=== PATIENT | female | born 1965 | race American Indian/Alaskan Native ===

== ENCOUNTER 2018-01-04 12:28 | Emergency (ER) | payer OTHER, BC ==
[2018-01-04 13:11] VITALS: TEMP 98.3
[2018-01-04] MEDS ORDERED: TDAP Vaccine 0.5 mL Syr IM ONE (13:22)
--- NOTE | 2018-01-04 13:27 | ED PDOC ---
Arrival/HPI - General Chief Complaint: Abnormal Skin Integrity Time Seen by Provider: 01/04/18 13:22 Historian: Patient - History of Present Illness Narrative History of Present Illness (Text): 01/04/18 13:24 A 52 year old female presents to the emergency room for foreign body removal. Patient reports that 1 week ago she dropped a glass on her kitchen floor. She reports that she thought she had swept it all up but stepped on a piece of glass with her bare L foot shortly after. The patient states that she went to her PMD's office today, but they could not remove it so she was advised to come to the emergency room for the removal. Patient notes that her tetanus shot is not up to date. The patient denies fevers, chills, headache, dizziness, sore throat, cough, chest pain, shortness of breath, dyspnea on exertion, abdominal pain, nausea, vomiting, diarrhea, neck/back pain, urinary/bowel changes or any other complaint. PMD: Dr. Fu 01/04/18 15:26 Time/Duration: Prior to Arrival Symptom Onset: Sudden Symptom Course: Unchanged Activities at Onset: Rest, Light Context: Home Past Medical History - Provider Review Nursing Documentation Reviewed: Yes - Pulmonary Hx Asthma: Yes Hx Bronchitis: Yes - Endocrine/Metabolic Hx Endocrine Disorders: Yes (pre-diabetes) - Genitourinary/Gynecological Hx Genitourinary Disorders: Yes (Fibroids) - Psychiatric Hx Substance Use: No - Anesthesia Hx Anesthesia: No Hx Anesthesia Reactions: No - Suicidal Assessment Feels Threatened In Home Enviroment: No Family/Social History - Physician Review Nursing Documentation Reviewed: Yes Family/Social History: No Known Family HX Smoking Status: Never Smoked Hx Alcohol Use: No Hx Substance Use: No Allergies/Home Meds Allergies/Adverse Reactions: Allergies Penicillins Allergy (Verified 01/04/18 13:05) RASH Home Medications: Home Meds Medication Instructions Recorded Confirmed Albuterol 0.083% [Albuterol 3 ml IH QID 06/28/15 07/06/15 Sulfate 3 Ml] Albuterol Sulfate [Proair Hfa] 0.09 mg IH QID 06/28/15 07/06/15 Azithromycin [Zithromax] 250 mg PO DAILY 06/28/15 07/06/15 Brompheniramine Mal/Dm [place] 118 ml PO QID 06/28/15 07/06/15 [Brom/Pseud/Dm 118 ml] Diclofenac Sodium 75 mg PO BID 06/28/15 07/06/15 Pantoprazole Sodium [Protonix] 40 mg PO DAILY 06/28/15 07/06/15 Phenylephrine/Dm/Acetaminop/GG 10 ml PO QID PRN 06/28/15 07/06/15 [Mucinex Fast-Max Cold, Flu & Sore Throat 177 ] Review of Systems - Physician Review All systems were reviewed & negative as marked: Yes - Review of Systems Constitutional: absent: Fevers, Night Sweats Respiratory: absent: SOB, Cough Cardiovascular: absent: Chest Pain, [place] Gastrointestinal: absent: Abdominal Pain, Stool Changes, Diarrhea, Nausea, Vomiting Genitourinary Female: absent: Urine Output Changes Musculoskeletal: Other (Foreign body in left foot.). absent: Back Pain, Neck Pain Skin: Other (pinpoint laceration to L foot) Neurological: absent: Headache, Dizziness Physical Exam Vital Signs Reviewed: Yes Vital Signs Temp Pulse Resp BP Pulse Ox 01/04/18 14:40 60 18 128/78 101 H 01/04/18 13:05 98.3 F 56 L 17 130/82 99 Temperature: Afebrile Blood Pressure: Normal Pulse: Bradycardic Respiratory Rate: Normal Appearance: Positive for: Well-Appearing, Non-Toxic, Comfortable Pain Distress: None Mental Status: Positive for: Alert and Oriented X 3 - Systems Exam Head: Present: Atraumatic, Normocephalic Pupils: Present: PERRL Extroacular Muscles: Present: EOMI Conjunctiva: Present: Normal Mouth: Present: Moist Mucous Membranes Neck: Present: Normal Range of Motion Back: Present: Normal Inspection Upper Extremity: Present: Normal Inspection. No: Cyanosis, Edema Lower Extremity: Present: Other (Glass in the sole of the medial side of the left foot. Pinpoint area of laceration. ) Neurological: Present: GCS=15, CN II-XII Intact, Speech Normal Skin: Present: Warm, Dry, Normal Color. No: Rashes Psychiatric: Present: Alert, Oriented x 3, Normal Insight, Normal Concentration Medical Decision Making ED Course and Treatment: 01/04/18 13:30 Impression: A 52 year old female presents to the emergency room for foreign body removal from left foot. Plan: -- Left Foot X- Ray -- Boostrix Vaccine -- Reassess and disposition Progress Notes: PROCEDURE: FOREIGN BODY REMOVAL Performed by the emergency provider Timeout: A timeout to verify the correct patient, procedure, and site was performed immediately prior to the procedure. Indication: Foreign body in the sole of the medial side of the left foot. Procedure: The glass was removed using forcepts. Post-procedure: The area was prepped and draped in the usual sterile fashion and was cleansed. Patient tolerated the procedure well with no immediate complications. The foreign body was removed. There was no bleeding. Patient tolerated the procedure well with no immediate complications. Post- procedure dressing was applied. PROCEDURE: Left Foot Radiographs. Dictator : Chandan Monreal MD Report Date : 01/04/2018 14:10:44 IMPRESSION: Normal left foot radiographs. 01/04/18 14:25: Patient stepped on glass 1 week ago and there is no surrounding erythema. Foreign body removed with xray confirmation. Patient feels better and tetanus updated. Wound was cleaned. Patient stepped on glass with bare foot 1 week ago. No indications for antibiotics. On reevaluation, I have discussed the results and plan with the patient, who expresses understanding. Patient given the opportunity to ask question, all questions were answered and there is agreement with the plan to discharge the patient home. Patient is stable for discharge. Patient was instructed to follow up with physician/clinic in 1-2 days or return if symptoms persist/worsen or new concerning symptoms arise. 01/04/18 15:28 - RAD Interpretation Radiology Orders: 01/04/18 13:23 FOOT LEFT 3 VIEWS ROUTINE [RAD] Stat - Medication Orders Current Medication Orders: Discontinued Medications Tetanus/Reduced Diphtheria/Acell Pertussis (Boostrix Vaccine Inj) 0.5 ml IM .ONCE ONE Stop: 01/04/18 13:23 Last Admin: 01/04/18 13:47 Dose: 0.5 ml - Scribe Statement The provider has reviewed the documentation as recorded by the James Oliveros Provider Scribe Attestation: All medical record entries made by the Scribe were at my direction and personally dictated by me. I have reviewed the chart and agree that the record accurately reflects my personal performance of the history, physical exam, medical decision making, and the department course for this patient. I have also personally directed, reviewed, and agree with the discharge instructions and disposition. Disposition/Present on Arrival - Present on Arrival Any Indicators Present on Arrival: No History of DVT/PE: No History of Uncontrolled Diabetes: No Urinary Catheter: No History of Decub. Ulcer: No History Surgical Site Infection Following: None - Disposition Have Diagnosis and Disposition been Completed?: Yes Diagnosis: Foreign body in foot Disposition: HOME/ ROUTINE Disposition Time: 14:20 Patient Plan: Discharge Condition: GOOD Additional Instructions: Follow-up with PMD within 2 days. Return to ED if condition worsens. Forms: [employer] (Lao)
--- NOTE | 2018-01-04 14:12 | RAD ---
Date of service: 01/04/2018 PROCEDURE: Left Foot Radiographs. HISTORY: stepped on glass, removed, eval for retained fb COMPARISON: None. FINDINGS: BONES: Normal. No fracture. JOINTS: Normal. SOFT TISSUES: No evidence of foreign body OTHER FINDINGS: None. IMPRESSION: Normal left foot radiographs.
[2018-01-04 14:58] VITALS: BP 128/78; PULSE 60; RESP 18
[2018-01-04 15:00] VITALS: O2SAT 101
== END 2018-01-04 14:40 | disposition home or self-care (01) ==
LOC: ED 12:28
DX: S90.852A Superficial foreign body, left foot, initial encounter (principal); W22.8XXA Striking against or struck by other objects, initial encounter; Y92.000 Kitchen of unspecified non-institutional (private) residence as the place of occurrence of the external cause; Z23 Encounter for immunization

== ENCOUNTER 2018-02-08 07:34 | Emergency (ER) | payer BC ==
--- NOTE | 2018-02-08 07:43 | ED PDOC ---
Arrival/HPI - General Historian: Patient <Marco A Ferro - Last Filed: 02/08/18 14:49> <Melvin Bowers - Last Filed: 02/08/18 15:29> - General Chief Complaint: Chest Pain Time Seen by Provider: 02/08/18 07:39 - History of Present Illness Narrative History of Present Illness (Text): 02/08/18 08:03 Patient is a 52 yo female with PMH of asthma, anxiety, pre- diabetes, and pre-hypertension presenting to the ED with left-sided chest pain and left shoulder pain. Patient states that the pain started when she woke up this morning. She describes the left chest pain to be dull and pressure-like, 7/ 10, and radiating to her left axilla. Her left shoulder pain is 10/10 and is worse when she moves her arm. Patient took an aspirin today which helped with the pain and moving her arms and chest makes the pain worse. The pain is reproducible when she presses on her left anterior upper ribs. She denies diaphoresis, nausea, or vomiting. Patient also admits to have started working again and is under a lot of stress and anxiety this past week. Patient denies having any fevers, chills, headaches, shortness of breath, abdominal pain, or any urinary symptoms. (Marco A Ferro) Past Medical History - Provider Review Nursing Documentation Reviewed: Yes - Pulmonary Hx Asthma: Yes Hx Bronchitis: Yes - Endocrine/Metabolic Hx Endocrine Disorders: Yes (pre-diabetes) - Genitourinary/Gynecological Hx Genitourinary Disorders: Yes (Fibroids) - Psychiatric Hx Substance Use: No - Anesthesia Hx Anesthesia: No Hx Anesthesia Reactions: No - Suicidal Assessment Feels Threatened In Home Enviroment: No <Marco A Ferro - Last Filed: 02/08/18 14:49> - Provider Review Nursing Documentation Reviewed: Yes <Melvin Bowers - Last Filed: 02/08/18 15:29> Family/Social History - Physician Review Nursing Documentation Reviewed: Yes Family/Social History: CAD/NM (Mom of a NM at age 75) Smoking Status: Never Smoked Hx Alcohol Use: No Hx Substance Use: No <Marco A Ferro - Last Filed: 02/08/18 14:49> - Physician Review Nursing Documentation Reviewed: Yes <Melvin Bowers - Last Filed: 02/08/18 15:29> Allergies/Home Meds <Marco A Ferro - Last Filed: 02/08/18 14:49> <Melvin Bowers - Last Filed: 02/08/18 15:29> Allergies/Adverse Reactions: Allergies Penicillins Allergy (Verified 02/08/18 07:50) RASH Home Medications: Home Meds Medication Instructions Recorded Confirmed Albuterol 0.083% [Albuterol 3 ml IH QID 06/28/15 02/08/18 Sulfate 3 Ml] Review of Systems - Physician Review All systems were reviewed & negative as marked: Yes - Review of Systems Constitutional: Normal. absent: Fevers Eyes: Normal ENT: Normal Respiratory: Normal. absent: SOB, Cough, Wheezing Cardiovascular: Chest Pain. absent: Palpitations Gastrointestinal: Normal. absent: Abdominal Pain, Constipation, Diarrhea, Nausea, Vomiting Genitourinary Female: Normal Musculoskeletal: Normal Skin: Normal. absent: Rash Neurological: Normal. absent: Headache Psychiatric: Normal <Marco A Ferro - Last Filed: 02/08/18 14:49> - Physician Review All systems were reviewed & negative as marked: Yes <Melvin Bowers - Last Filed: 02/08/18 15:29> Physical Exam Vital Signs Reviewed: Yes Temperature: Afebrile Blood Pressure: Normal Pulse: Regular Respiratory Rate: Normal Appearance: Positive for: Well-Appearing, Non-Toxic, Comfortable Pain Distress: Mild Mental Status: Positive for: Alert and Oriented X 3 - Systems Exam Head: Present: Atraumatic, Normocephalic Pupils: Present: PERRL Extroacular Muscles: Present: EOMI Conjunctiva: Present: Normal Mouth: Present: Moist Mucous Membranes Respiratory/Chest: Present: Clear to Auscultation. No: Respiratory Distress, Accessory Muscle Use, Wheezes Cardiovascular: Present: Regular Rate and Rhythm, Normal S1, S2, Other (Left anterior ribs and 1st, 2nd intercostal region tender to palpation. ). No: Murmurs, Rub, Gallop Abdomen: Present: Normal Bowel Sounds. No: Tenderness, Distention, Guarding Upper Extremity: Present: Tenderness (10/10 left shoulder pain, worse with movement). No: Cyanosis, Edema Lower Extremity: Present: Normal Inspection. No: Edema Neurological: Present: GCS=15, CN II-XII Intact, Speech Normal Skin: Present: Warm, Dry, Normal Color. No: Rashes Psychiatric: Present: Alert, Oriented x 3, Normal Insight, Normal Concentration <Marco A Ferro - Last Filed: 02/08/18 14:49> Vital Signs Temp Pulse Resp BP Pulse Ox 02/08/18 13:33 49 L 18 125/73 98 02/08/18 12:10 48 L 18 131/77 98 02/08/18 10:42 52 L 18 130/83 98 02/08/18 07:41 98.4 F 66 18 120/64 98 Medical Decision Making <Marco A Ferro - Last Filed: 02/08/18 14:49> - EKG Interpretation Interpreted by ED Physician: Yes Type: 12 lead EKG <Melvin Bowers - Last Filed: 02/08/18 15:29> ED Course and Treatment: Impression: Patient is a 52 year old female with past medical history of asthma and anxiety presenting to the ED with left-sided chest pain. Differential Diagnoses Include But is Not Limited To: - Costochondritis/musculoskeletal - Myocardial infarction Plan: - CBC - CMP - EKG - Troponin - Chest Xray - Toradol - Flexeril Progress note: 02/08/18 10:06 - Patient was reassessed, she states that the pain is better but is still very tender when she presses on her anterior upper left ribs. Ordered flexeril for pain. 02/08/18 10:29 - Repeat EKG showed NSR at 66 bpm - Troponin: < 0.01 - Chest xray: No active disease 02/08/18 13:05 - Repeat troponin was < 0.01 - Repeat EKG showed (Marco A Ferro) 02/08/18 08:38 Impression: 52 year old female presents to the emergency department for left- sided chest pain and shoulder pain In agreement with resident note, which includes further HPI details. Patient was seen and evaluated with resident, came up with plan and treatment together. Prior Visits: Notes and results from previous visits were reviewed. Progress Notes: EKG shows NSR at [address]-segment elevations, normal intervals, normal axis. Interpreted by me. 02/08/18 10:22 Patient's pain improved with Toradol. Flexeril added. Troponin negative x 1. EKG is normal. Patient's HEART Score is 1-2. Based on her exam findings and history this is more of a msk shoulder/chest pain. She will get a 2nd troponin in 3 hours. 02/08/18 13:05 Repeat troponin negative x 2. Repeat EKG unchanged. Will have patient follow up with her PMD and referred her to Dr. Martines for Cardiology because he's signal intelligence/electronic warfare. She states that she will make sure to return to the ED if chest pain returns or any other concerns. (Melvin Bowers) - Lab Interpretations Lab Results: 02/08/18 09:00 02/08/18 09:00 Lab Results 02/08/18 12:20: Troponin I < 0.01 02/08/18 09:00: Sodium 144, Potassium 4.2, Chloride 105, Carbon Dioxide 25, Anion Gap 18, BUN 13, Creatinine 1.0, Est GFR ( Amer) > 60, Est GFR (Non- Af Amer) 58, Random Glucose 120 H, Calcium 8.9, Troponin I < 0.01 02/08/18 09:00: WBC 7.6, RBC 4.01, Hgb 12.7, Hct 37.9, MCV 94.5, MCH 31.7, MCHC 33.5, RDW 13.4, Plt Count 312, MPV 9.5, Gran % 57.2, Lymph % (Auto) 32.9, [place] % (Auto) 6.4 H, Eos % (Auto) 3.2, Baso % (Auto) 0.3, Gran # 4.35, Lymph # (Auto ) 2.5, [place] # (Auto) 0.5, Eos # (Auto) 0.2, Baso # (Auto) 0.02 - RAD Interpretation Radiology Orders: 02/08/18 07:59 CXR [CHEST PORTABLE] [RAD] Stat - Medication Orders Current Medication Orders: Discontinued Medications Cyclobenzaprine HCl (Flexeril) 5 mg PO STAT STA Stop: 02/08/18 09:56 Last Admin: 02/08/18 10:26 Dose: 5 mg Ketorolac Tromethamine (Toradol) 15 mg IVP STAT STA Stop: 02/08/18 08:01 Last Admin: 02/08/18 08:22 Dose: 15 mg ESTELA Pain Assessment Document 02/08/18 08:22 ELIUA (Rec: 02/08/18 08:23 SHAKILA [id number]) Pain Reassessment Is this a pain reassessment? No Sleep Is patient sleeping during reassessment? No Presence of Pain Presence of Pain Yes Pain Scale Used Pain Scale Used Numeric Description Description Intermittent Intensity of Pain at present 3 IVP Administration Document 02/08/18 08:22 SHAKILA (Rec: 02/08/18 08:23 SHAKILA [id number]) Charges for Administration # of IVP Administrations 1 Re-Assess: ESTELA Pain Assessment Document 02/08/18 09:22 SHAKILA (Rec: 02/08/18 10:43 SHAKILA [id number]) Pain Reassessment Is this a pain reassessment? Yes Sleep Is patient sleeping during reassessment? No <Marco A Ferro - Last Filed: 02/08/18 14:49> - PA / TOLL BRIDGE ATTENDANT / Resident Statement MD/DO has reviewed & agrees with the documentation as recorded. MD/DO has examined the patient and agrees with the treatment plan. - Scribe Statement The provider has reviewed the documentation as recorded by the Scribe <Melvin Bowers - Last Filed: 02/08/18 15:29> - Scribe Statement Gayle Begum All medical record entries made by the Scribe were at my direction and personally dictated by me. I have reviewed the chart and agree that the record accurately reflects my personal performance of the history, physical exam, medical decision making, and the department course for this patient. I have also personally directed, reviewed, and agree with the discharge instructions and disposition. (Melvin Bowers) Disposition/Present on Arrival - Present on Arrival Any Indicators Present on Arrival: No History of DVT/PE: No History of Uncontrolled Diabetes: No Urinary Catheter: No History of Decub. Ulcer: No History Surgical Site Infection Following: None - Disposition Have Diagnosis and Disposition been Completed?: Yes Disposition Time: 13:07 <Marco A Ferro - Last Filed: 02/08/18 14:49> - Disposition Patient Plan: Discharge <Melvin Bowers - Last Filed: 02/08/18 15:29> - Disposition Diagnosis: Costochondral chest pain, Shoulder pain, left Disposition: HOME/ ROUTINE Condition: IMPROVED Discharge Instructions (ExitCare): Chest Pain (ED) Additional Instructions: JASPER SERRATO, thank you for letting us take care of you today. Your provider was Melvin Bowers DO and you were treated for costochondral chest pain and left shoulder pain. The emergency medical care you received today was directed at your acute symptoms. If you were prescribed any medication, please fill it and take as directed. It may take several days for your symptoms to resolve. Return to the Emergency Department if your symptoms worsen, do not improve, or if you have any other problems. Please contact your doctor or call one of the physicians/clinics you have been referred to that are listed on the Patient Visit Information form that is included in your discharge packet. Bring any paperwork you were given at discharge with you along with any medications you are taking to your follow up visit. Our treatment cannot replace ongoing medical care by a primary care provider outside of the emergency department. Thank you for allowing the [facility] team to be part of your care today. If you had an X-Ray or CT scan: A Radiologist will review the ED reading if any change in treatment is needed we will contact you. If you had a blood, urine, or wound culture: It will take several days for the results, if any change in treatment is needed we will contact you. If you had an STI test: It will take 48 hours for the results. Please call after 1 week if you have not heard back. Prescriptions: Cyclobenzaprine [Flexeril] 5 mg PO Q8H #20 tab Referrals: Chaitanya Fu MD [Primary Care Provider] - Follow up with primary Laurent Martines MD [Staff Provider] - Follow up with primary Forms: [employer] (Maldivian), WORK NOTE
[2018-02-08 07:50] VITALS: RESP 18; TEMP 98.4; O2SAT 98; BMI 38.9
[2018-02-08 09:49] LABS: BASO # 0.02 K/mm3 (0.0-2.0); BASO % 0.3 % (0.0-3.0); EOS # 0.2 (0.0-0.7); EOS % 3.2 % (1.5-5.0); GRAN # 4.35 (1.4-6.5); GRAN % 57.2 % (50.0-68.0); HEMOGLOBIN 12.7 g/dL (12.0-16.0); LYMPH # 2.5 (1.2-3.4); LYMPH % 32.9 % (22.0-35.0); MEAN CELL VOLUME 94.5 fl (80.0-105.0); MEAN CORPUSCULAR HEMOGLOBIN 31.7 pg (25.0-35.0); MEAN CORPUSCULAR HGB CONC 33.5 g/dl (31.0-37.0); MEAN PLATELET VOLUME 9.5 fl (7.0-11.0); MONO # 0.5 (0.1-0.6); MONO % 6.4 % (1.0-6.0); RBC 4.01 10^6/uL (3.5-6.1); RED CELL DISTRIBUTION WIDTH 13.4 % (11.5-14.5); WHITE BLOOD COUNT 7.6 10^3/ul (4.5-11.0)
[2018-02-08 10:04] LABS: BLOOD UREA NITROGEN 13 mg/dL (7-21); CALCIUM 8.9 mg/dL (8.4-10.5); GFR NON-AFRICAN AMERICAN 58
[2018-02-08 10:23] LABS: TROPONIN I < 0.01 ng/mL
--- NOTE | 2018-02-08 10:41 | RAD ---
Date of service: 02/08/2018 HISTORY: chest pain COMPARISON: No prior. FINDINGS: LUNGS: No active pulmonary disease. PLEURA: No significant pleural effusion identified, no pneumothorax apparent. CARDIOVASCULAR: Normal. OSSEOUS STRUCTURES: No significant abnormalities. VISUALIZED UPPER ABDOMEN: Normal. OTHER FINDINGS: None. IMPRESSION: No active disease.
[2018-02-08 13:34] VITALS: BP 125/73; PULSE 49
--- NOTE | 2018-02-08 14:19 | CARD ---
APPROVED REPORT Date of service: 02/08/2018 EKG Measurement Heart [id number] <Conclusion> Normal sinus rhythm LAD PRWP NSSTW changes
--- NOTE | 2018-02-09 09:34 | CARD ---
APPROVED REPORT Date of service: 02/08/2018 EKG Measurement Heart [id number] <Conclusion> Marked sinus bradycardia LAD NSSTW changes C/W ECG 02/08/18: the rate is slower
== END 2018-02-08 13:34 | disposition home or self-care (01) ==
LOC: ED 07:34
DX: M25.512 Pain in left shoulder (principal); R07.9 Chest pain, unspecified
CPT/HCPCS: 71045; 80048; 84484; 85025; 93005; 96374; 99284; J1885